=== PATIENT | male | born 1975 | race Two or more races ===

== ENCOUNTER 2021-05-11 21:15 | Emergency (ER) | payer SELFPAY ==
[~2021-05-11] VITALS: Ht 177.8 cm; Wt 154.0 kg
--- NOTE | 2021-05-11 21:40 | PHYS DOC ---
Past History Past Medical History: Hypertension Past Surgical History: No Surgical History General Adult EDM: Chief Complaint: LOWER EXTREMITY SWELLING HPI: HPI: ".. I gotten the legs sores... on both of legs.. they have just come up.. and my legs are swollen.. Both lower legs are more painful.. my BP's are up.... 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 Both legs have become swollen past week. There has been some improvement with his left leg. Patient lives in [facility]. Currently in town on one half is over the road trips. Has recently developed bilateral leg ulcers. Patient denies any fever chills. Patient denies any previous history of pulmonary embolisms coagulopathy or DVTs. Patient has past medical history of obesity, hypertension, restless leg syndrome, asthma. There is no family history of coagulopathy. Patient denies any specific history of injury to his legs. Patient does smoke tobacco. Review of Systems: Review of Systems: Constitutional: Denies fever or chills Eyes: Denies change in visual acuity HENT: Denies nasal congestion or sore throat Respiratory: Denies cough or shortness of breath Cardiovascular: Denies chest pain or edema GI: Denies abdominal pain, nausea, vomiting, bloody stools or diarrhea : Denies dysuria Musculoskeletal: Complains of lower leg pain and increased edema Integument: Complains of lower leg ulcers Neurologic: Denies headache, focal weakness or sensory changes Endocrine: Denies polyuria or polydipsia Lymphatic: Denies swollen glands Psychiatric: Denies depression or anxiety Family History: Family History: Noncontributory to presentation Current Medications: Current Meds: See nursing for home meds Allergies: Allergies: Allergies Coded Allergies Type Severity Reaction Last Updated Verified No Known Drug Allergies 05/11/21 No Physical Exam: PE: Constitutional: Moderate acute distress, non-toxic appearance. [] HENT: Normocephalic, atraumatic, bilateral external ears normal, oropharynx moist, no oral exudates, nose normal. [] Eyes: PERRLA, EOMI, conjunctiva normal, no discharge. [] Neck: Normal range of motion, no tenderness, supple, no stridor. More than 17 inches circumference Cardiovascular:Heart rate regular rhythm, no murmur, PMI to left Lungs & Thorax: Bilateral breath sounds equal apex with some basilar crackles on auscultation [] Abdomen: Bowel sounds normal, soft, no tenderness, no masses, no pulsatile masses. Morbidly obese Skin: Warm, dry, no erythema, venous stasis changes in lower legs. Bilateral lower leg areas of ulceration Back: No tenderness, no CVA tenderness. [] Extremities: Lower leg tenderness, no cyanosis, no clubbing, ROM intact, lower leg edema. [] Right is more edematous than left leg. Neurologic: Alert and oriented X 3, moves all extremities on request, has distal sensation, decreased dorsal pedis and posterior pedis pulses, no focal deficits noted. [] Psychologic: Affect anxious, judgement normal, mood normal. [] Current Patient Data: Vital Signs: Vital Signs Date Time Temp Pulse Resp B/P (MAP) Pulse Ox O2 Delivery O2 Flow Rate FiO2 05/11/21 21:36 98.5 85 16 97 EKG: EKG: My interpretation of EKG shows a sinus rhythm at 80 bpm. Leftward axis. Some nonspecific T wave changes. Time of EKG is 2325 hrs. My interpretation second EKG shows a sinus rhythm at 80 bpm. Leftward axis. Nonspecific T waves. No findings of acute STEMI of contralateral changes. No acute interval change between the 2 EKGs time of this EKG is 00 44 minutes [] Radiology/Procedures: Radiology/Procedures: [place] [address] IMAGING REPORT Signed PATIENT: CAROL FLORIAN ACCOUNT: [id number] : 1975 LOCATION: ER AGE: 46 SEX: M EXAM STATUS: REG ER ORD. PHYSICIAN: MARCELLA PIPER MD REASON: dyspnea, chf PROCEDURE: PORTABLE CHEST 1V AP chest x-ray HISTORY: Congestive heart failure and dyspnea. FINDINGS: Heart size upper limits of normal may be magnified by the AP portable technique. The mediastinal silhouette is normal. No pneumothorax, pulmonary opacities or effusions. Chronic appearing deformity of the right second rib. IMPRESSION: No acute process. Electronically signed by: Chucho Reyes MD (05/12/2021 5:35 AM) [facility] DICTATED AND SIGNED BY: CHUCHO REYES MD DATE: 05/12/21 0534 CC: MARCELLA PIPER MD; NON,STAFF ~[facility]0 0 [place] [address] IMAGING REPORT Signed PATIENT: CAROL FLORIAN ACCOUNT: [id number] : 1975 LOCATION: ER AGE: 46 SEX: M EXAM STATUS: REG ER ORD. PHYSICIAN: MARCELLA PIPER MD REASON: dyspnea, OMNI 350, 100ml PROCEDURE: CT ANGIOGRAPHY CHEST CT angiography chest with contrast PQRS statement: CT scans at this facility use dose reduction including either automated exposure control, iterative reconstructions, and /or weight based radiation dosing via mA and kV modification when appropriate to reduce radiation dose to as low as reasonably achievable. HISTORY: Shortness of breath. Asthma. Elevated d-dimer. Contrast: 100 mL Omnipaque 350 intravenous contrast with 3-D MIP reconstructions of the arteries acquired. FINDINGS: Tortuosity thoracic aorta. Ascending aorta is ectatic with diameter 3.8 cm. Heart size is normal. Esophagus unremarkable. No large adenopathy in chest. Patient respiratory motion artifact as well as some decreased density of contrast within the small peripheral lobar pulmonary arteries may limit assessment for small peripheral lobar emboli. In light of this no pulmonary artery emboli are evident. Right renal cystic lesion extends outside the field of view. Thoracic disc disease with spinal canal stenosis from disc osteophytes. Chronic deformities right upper ribs. This could be congenital from a osteochondroma projecting inferior from the right lateral second rib abutting the adjacent third rib, or due to old trauma. Trachea and bronchi are unremarkable. No pulmonary opacities. No pleural effusions. Otherwise no follow- up is necessary. Right middle lobe 3 mm nodule image 88. IMPRESSION: 1. No acute process evident. No pulmonary artery emboli. See above. 2. 3 mm right middle lobe solitary pulmonary nodule. Per Fleischner guidelines if the patient has risk factors for malignancy CT follow-up in 12 months should be considered. Otherwise no follow-up is necessary. Electronically signed by: Chucho Reyes MD (05/12/2021 2:16 AM) [facility] DICTATED AND SIGNED BY: CHUCHO REYES MD DATE: 05/12/21208 CC: MARCELLA PIPER MD; NON,STAFF ~[facility]0 0 [place] [address] IMAGING REPORT Signed PATIENT: CAROL FLORIAN ACCOUNT: [id number] : 1975 LOCATION: ER AGE: 46 SEX: M EXAM STATUS: REG ER ORD. PHYSICIAN: MARCELLA PIPER MD REASON: edema, pain, ulcers PROCEDURE: DUPLEX ART LOWER EXTR BILAT Bilateral lower extremity arterial duplex Doppler ultrasound HISTORY: Bilateral leg pain, edema and ulcers and open wounds. FINDINGS: Right leg arteries demonstrate no plaquing, thrombus, significant stenosis or occlusion. There are normal triphasic arterial waveforms and velocities of the femoral, popliteal and calf arteries. No evidence of significant stenosis or occlusion. Individual flow velocities are described below. Common femoral artery: 140 cm/s Superficial femoral artery: 177 cm/s upper thigh, 104 cm/s mid thigh, 162 cm/s lower thigh Profunda femoral artery: 105 cm/s Popliteal artery: 98 cm/s .Posterior tibial artery: 100 cm/s upper calf, 135 cm/s lower calf Peroneal artery: 62 cm/s Intertibial artery: 149 cm/s Dorsalis pedis artery: 94 cm/s Left leg arteries demonstrate no plaquing, thrombus, significant stenosis or occlusion. There are normal triphasic arterial waveforms and velocities of the common femoral artery and proximal superficial femoral artery with biphasic waveforms and normal velocities of the lower femoral artery, popliteal artery catheter arteries, these biphasic waveforms. Indicate some peripheral vascular disease with vessel wall hardening. No evidence of significant stenosis or occ lusion. The individual flow velocities are described below. Common femoral artery: 152 cm/s Profundofemoral artery: 66 cm/s Superficial femoral artery: 150 cm/s upper thigh, 85 cm/s mid thigh, 66 cm/s lower thigh Popliteal artery: 113 cm/s Posterior tibial artery: 54 cm/s upper calf, 90 cm/s lower catheter Peroneal artery: 76 h/s Anterior tibial artery: 136 cm/s Dorsalis pedis artery: 91 cm/s Impression: No evidence of hemodynamically significant stenosis or occlusion of the leg arteries. There are some biphasic arterial waveforms of the left lower superficial femoral artery through the popliteal artery and calf arteries which may be indicative of some peripheral vascular disease. See above. Electronically signed by: Chucho Reyes MD (05/12/2021 4:50 AM) [facility] DICTATED AND SIGNED BY: CHUCHO REYES MD DATE: 05/12/211 CC: MARCELLA PIPER MD; NON,STAFF ~[facility] [address] [address] IMAGING REPORT Signed PATIENT: CAROL FLORIAN ACCOUNT: [id number] : 1975 LOCATION: ER AGE: 46 SEX: M EXAM STATUS: REG ER ORD. PHYSICIAN: MARCELLA PIPER MD REASON: edema, pain, ulcers PROCEDURE: VENOUS LOWER EXT BILATERAL Bilateral lower extremity venous duplex Doppler ultrasound HISTORY: Bilateral leg pain, edema, ulcers, open wounds FINDINGS: No DVT with compressibility, patient color Doppler flow and augmentation of blood flow in the common femoral veins, profunda femoral veins, superficial femoral veins and popliteal veins. No DVT with patient color Doppler level of the posterior tibial and peroneal veins in the calves. IMPRESSION: Negative bilateral legs for DVT. Electronically signed by: Chucho Reyes MD (05/12/2021 4:51 AM) [facility] DI[facility]ATED AND SIGNED BY: CHUCHO REYES MD DATE: 05/12/216 CC: MARCELLA PIPER MD; NON,STAFF ~[facility]0 0 [][address] [address] IMAGING REPORT Signed PATIENT: CAROL FLORIAN ACCOUNT: [id number] : 1975 LOCATION: ER AGE: 46 SEX: M EXAM STATUS: REG ER ORD. PHYSICIAN: MARCELLA PIPER MD REASON: dyspnea, OMNI 350, 100ml PROCEDURE: CT ANGIOGRAPHY CHEST CT angiography chest with contrast PQRS statement: CT scans at this facility use dose reduction including either automated exposure control, iterative reconstructions, and /or weight based radiation dosing via mA and kV modification when appropriate to reduce radiation dose to as low as reasonably achievable. HISTORY: Shortness of breath. Asthma. Elevated d-dimer. Contrast: 100 mL Omnipaque 350 intravenous contrast with 3-D MIP reconstructions of the arteries acquired. FINDINGS: Tortuosity thoracic aorta. Ascending aorta is ectatic with diameter 3.8 cm. Heart size is normal. Esophagus unremarkable. No large adenopathy in chest. Patient respiratory motion artifact as well as some decreased density of contrast within the small peripheral lobar pulmonary arteries may limit assessment for small peripheral lobar emboli. In light of this no pulmonary artery emboli are evident. Right renal cystic lesion extends outside the field of view. Thoracic disc disease with spinal canal stenosis from disc osteophytes. Chronic deformities right upper ribs. This could be congenital from a osteochondroma projecting inferior from the right lateral second rib abutting the adjacent third rib, or due to old trauma. Trachea and bronchi are unremarkable. No pulmonary opacities. No pleural effusions. Otherwise no follow- up is necessary. Right middle lobe 3 mm nodule image 88. IMPRESSION: 1. No acute process evident. No pulmonary artery emboli. See above. 2. 3 mm right middle lobe solitary pulmonary nodule. Per Fleischner guidelines if the patient has risk factors for malignancy CT follow-up in 12 months should be considered. Otherwise no follow-up is necessary. Electronically signed by: Chucho Reyes MD (05/12/2021 2:16 AM) [facility] DICTATED AND SIGNED BY: CHUCHO REYES MD DATE: 05/12/21 0209 CC: MARCELLA PIPER MD; NON,STAFF ~[facility]0 0 Heart Score: C/O Chest Pain: N/A HEART Score for Chest Pain: HEART Score for Chest Pain Response (Comments) Value History Slighlty/Non-Suspicious 0 ECG Normal 0 Age >45 - < 65 1 Risk Factors 1 or 2 Risk Factors 1 Troponin < Normal Limit 0 Total 2 Risk Factors: Risk Factors: DM, Current or recent (<one month) smoker, HTN, HLP, family history of CAD, obesity. Risk Scores: Score 0 - 3: 2.5% MACE over next 6 weeks - Discharge Home Score 4 - 6: 20.3% MACE over next 6 weeks - Admit for Clinical Observation Score 7 - 10: 72.7% MACE over next 6 weeks - Early Invasive Strategies Course & Med Decision Making: Course & Med Decision Making Pertinent Labs and Imaging studies reviewed. (See chart for details) Patient to use compression stockings and consider follow-up with wound care clinic. Patient follow-up with his primary care doctor and [place] and have him review the ED work-up. Patient was issued a copy of his ultrasound , Doppler studies, CT studies. Patient advised not to smoke. Patient advised to review his blood pressure regimen with his primary care since he had findings of accelerated hypertension here tonight. Patient did have response to clonidine 0.2 and was discharged on a clonidine patch 0.2 patient brothers patch until follow-up with his physician in [place]. Patient informed could not completely eliminate his risk of pulmonary embolism or DVTs and he did have an elevated D-dimer 2.18. Patient appears to have findings of peripheral vascular disease and encouraged to stop smoking. Patient advised that there is edema also may be the result of lymphatic obstruction. Patient advised must follow-up. Take a daily aspirin. Take his other blood pressure meds as directed. Impression: 1. Bilateral leg edema 2. Bilateral leg ulcers 3. Peripheral vascular disease - lower calfs 4. Elevated D-dimer 2.18 5. Accelerated hypertension 6. Elevated CK 663 7. Elevated glucose level 127 8. History of restless leg syndrome 9. Morbid Obesity [] Dragon Disclaimer: Dragon Disclaimer: This electronic medical record was generated, in whole or in part, using a voice recognition dictation system. Departure Departure: Referrals: NON,STAFF (PCP) Dragon Disclaimer This chart was dictated in whole or in part using Voice Recognition software in a busy, high-work load, and often noisy Emergency Department environment. It may contain unintended and wholly unrecognized errors or omissions. MARCELLA PIPER MD May 11, 2021 21:40
[2021-05-11] MEDS ORDERED: ASPIRIN CHEWABLE 81 MG TABLET. PO ONE (22:15)
[2021-05-11] MEDS ORDERED: IV RINGERS SOLUTION,LACTATED 1,000 ML IV SCH (22:15)
[2021-05-11 22:41] LABS: BASO # 0.1 x10^3/uL (0.0-0.2); BASO % 1 % (0-3); EOS # 0.3 x10^3/uL (0.0-0.7); EOS % 3 % (0-3); HEMOGLOBIN 15.7 g/dL (13.0-17.5); LYMPH # 2.2 x10^3/uL (1.0-4.8); LYMPH % 17 % (24-48); MEAN CORPUSCULAR HEMOGLOBIN 31 pg (25-35); MEAN CORPUSCULAR HGB CONC 33 g/dL (31-37); MEAN CORPUSCULAR VOLUME 93 fL (79-100); MONO # 0.8 x10^3/uL (0.0-1.1); MONO % 6 % (0-9); NEUT # 9.5 x10^3uL (1.8-7.7); NEUT % 73 % (31-73); PLATELET COUNT 378 x10^3/uL (140-400); RED BLOOD COUNT 5.15 x10^6/uL (4.30-5.70); RED CELL DISTRIBUTION WIDTH 14.5 % (11.5-14.5)
[2021-05-11 22:50] LABS: CALCIUM 8.6 mg/dL (8.5-10.1); CREATININE 1.1 mg/dL (0.7-1.3); GFR 71.4; POTASSIUM 4.3 mmol/L (3.5-5.1)
[2021-05-11 23:03] LABS: ALBUMIN 3.3 g/dL (3.4-5.0); DIRECT BILIRUBIN 0.1 mg/dL (0.0-0.2); MAGNESIUM 2.5 mg/dL (1.8-2.4); TOTAL BILIRUBIN 0.3 mg/dL (0.2-1.0); TOTAL PROTEIN 7.7 g/dL (6.4-8.2)
[2021-05-11 23:25] LABS: BILIRUBIN,URINE NEG (NEG); CLARITY,URINE CLEAR; COLOR,URINE YELLOW; GLUCOSE,URINE NEG (NEG); NITRITE,URINE NEG (NEG); UROBILINOGEN,URINE 0.2 mg/dL (0.2 mg/dL)
[2021-05-11 23:27] LABS: BACTERIA,URINE 0 /HPF (0-FEW); RBC,URINE RARE /HPF (0-2); SQUAMOUS EPITHELIAL CELL,UR OCC /LPF; WBC,URINE OCC /HPF (0-4)
--- NOTE | 2021-05-11 23:32 | EKG ---
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
[2021-05-12] MEDS ORDERED: IOHEXOL 350 MG/ML 100 ML VIAL. IV ONE (00:30)
[2021-05-12] MEDS ORDERED: CONTRAST GIVEN. MC PRN (00:45)
--- NOTE | 2021-05-12 00:53 | EKG ---
[address] [address] Test Date: 2021-05-12 Test Time: 00:44:58 Pat Name: CAROL FLORIAN Department: Room: Gender: Statistical Typist: DAKSHA : 1975 Requested By: MARCELLA PIPER Order Number: [id number] Reading MD: Filiberto Strong MD Measurements Intervals [place] Rate: 80 P: -31 AK: 154 QRS: -2 QRSD: 86 T: 133 QT: 378 QTc: 440 Interpretive Statements SINUS RHYTHM NON-SPECIFIC ST/T CHANGES CONSIDER LVH Electronically Signed On 05-12-2021 9:18:24 SENIOR SQL DATABASE DEVELOPER by Filiberto Strong MD
[2021-05-12] MEDS ORDERED: APIXABAN 5 MG TABLET. PO SCH (01:00)
--- NOTE | 2021-05-12 02:18 | RAD ---
CT angiography chest with contrast PQRS statement: CT scans at this facility use dose reduction including either automated exposure cont rol, iterative reconstructions, and /or weight based radiation dosing via mA and kV modification when appropriate to reduce radiation dose to as low as reasonably achievable. HISTORY: Shortness of breath. Asthma. Elevated d-dimer. Contrast: 100 mL Omnipaque 350 intravenous contrast with 3-D MIP reconstructions of the arteries acqu ired. FINDINGS: Tortuosity thoracic aorta. Ascending aorta is ectatic with diameter 3.8 cm. Heart size is n ormal. Esophagus unremarkable. No large adenopathy in chest. Patient respiratory motion artifact as w ell as some decreased density of contrast within the small peripheral lobar pulmonary arteries may [facility] assessment for small peripheral lobar emboli. In light of this no pulmonary artery emboli are arnie dent. Right renal cystic lesion extends outside the field of view. Thoracic disc disease with spinal canal stenosis from disc osteophytes. Chronic deformities right upper ribs. This could be congenital from a osteochondroma projecting inferior from the right lateral second rib abutting the adjacent thi rd rib, or due to old trauma. Trachea and bronchi are unremarkable. No pulmonary opacities. No pleura l effusions. Otherwise no follow-up is necessary. Right middle lobe 3 mm nodule image 88. IMPRESSION: 1. No acute process evident. No pulmonary artery emboli. See above. 2. 3 mm right middle lobe solitary pulmonary nodule. Per Fleischner guidelines if the patient has ris k factors for malignancy CT follow-up in 12 months should be considered. Otherwise no follow-up is ne cessary. Electronically signed by: Derrick Reyes MD (05/12/2021 2:16 AM) [facility]
--- NOTE | 2021-05-12 04:53 | RAD ---
Bilateral lower extremity arterial duplex Doppler ultrasound HISTORY: Bilateral leg pain, edema and ulcers and open wounds. FINDINGS: Right leg arteries demonstrate no plaquing, thrombus, significant stenosis or occlusion. There are no rmal triphasic arterial waveforms and velocities of the femoral, popliteal and calf arteries. No evid ence of significant stenosis or occlusion. Individual flow velocities are described below. Common femoral artery: 140 cm/s Superficial femoral artery: 177 cm/s upper thigh, 104 cm/s mid thigh, 162 cm/s lower thigh Profunda femoral artery: 105 cm/s Popliteal artery: 98 cm/s .Posterior tibial artery: 100 cm/s upper calf, 135 cm/s lower calf Peroneal artery: 62 cm/s Intertibial artery: 149 cm/s Dorsalis pedis artery: 94 cm/s Left leg arteries demonstrate no plaquing, thrombus, significant stenosis or occlusion. There are nor mal triphasic arterial waveforms and velocities of the common femoral artery and proximal superficial femoral artery with biphasic waveforms and normal velocities of the lower femoral artery, popliteal artery catheter arteries, these biphasic waveforms. Indicate some peripheral vascular disease with ve ssel wall hardening. No evidence of significant stenosis or occlusion. The individual flow velocities are described below. Common femoral artery: 152 cm/s Profundofemoral artery: 66 cm/s Superficial femoral artery: 150 cm/s upper thigh, 85 cm/s mid thigh, 66 cm/s lower thigh Popliteal artery: 113 cm/s Posterior tibial artery: 54 cm/s upper calf, 90 cm/s lower catheter Peroneal artery: 76 h/s Anterior tibial artery: 136 cm/s Dorsalis pedis artery: 91 cm/s Impression: No evidence of hemodynamically significant stenosis or occlusion of the leg arteries. The re are some biphasic arterial waveforms of the left lower superficial femoral artery through the popl iteal artery and calf arteries which may be indicative of some peripheral vascular disease. See above . Electronically signed by: Derrick Reyes MD (05/12/2021 4:50 AM) [facility]
--- NOTE | 2021-05-12 04:53 | RAD ---
Bilateral lower extremity venous duplex Doppler ultrasound HISTORY: Bilateral leg pain, edema, ulcers, open wounds FINDINGS: No DVT with compressibility, patient color Doppler flow and augmentation of blood flow in t he common femoral veins, profunda femoral veins, superficial femoral veins and popliteal veins. No DV T with patient color Doppler level of the posterior tibial and peroneal veins in the calves. IMPRESSION: Negative bilateral legs for DVT. Electronically signed by: Derrick Reyes MD (05/12/2021 4:51 AM) [facility]
[2021-05-12] MEDS ORDERED: cloNIDine HCL 0.1 MG TABLET PO ONE (05:15)
[2021-05-12 05:27] VITALS: BP 172/85
[2021-05-12] MEDS ORDERED: cloNIDine TTS-2 1 PATCH PATCH TD ONE ×2 (05:30)
--- NOTE | 2021-05-12 05:38 | RAD ---
AP chest x-ray HISTORY: Congestive heart failure and dyspnea. FINDINGS: Heart size upper limits of normal may be magnified by the AP portable technique. The medias tinal silhouette is normal. No pneumothorax, pulmonary opacities or effusions. Chronic appearing defo rmity of the right second rib. IMPRESSION: No acute process. Electronically signed by: Derrick Reyes MD (05/12/2021 5:35 AM) [facility]
[2021-05-18] MEDS ORDERED: APIXABAN 5 MG TABLET. PO SCH (21:00)
== END 2021-05-12 05:40 | disposition home or self-care (01) ==
LOC: ER 21:15
DX: L97.929 Non-pressure chronic ulcer of unspecified part of left lower leg with unspecified severity (principal); L97.919 Non-pressure chronic ulcer of unspecified part of right lower leg with unspecified severity; I73.9 Peripheral vascular disease, unspecified; R79.1 Abnormal coagulation profile; I10 Essential (primary) hypertension; R74.8 Abnormal levels of other serum enzymes; R73.9 Hyperglycemia, unspecified; G25.81 Restless legs syndrome; E66.01 Morbid (severe) obesity due to excess calories; Z20.822 Contact with and (suspected) exposure to COVID-19; Z68.42 Body mass index [BMI] 45.0-49.9, adult
CPT/HCPCS: 36415; 71045; 71275; 80048; 80076; 81001; 82550; 83690; 83735; 83880; 84443; 84484; 85025; 85379; 85610; 85730; 87426; 93005; 93925; 93970; 96360; 96361; 99285; C9803; J7120; Q9967; U0003; 99284